=== PATIENT | male | born 1955 ===

== ENCOUNTER 2019-07-27 14:31 | Emergency (ER) | payer BC ==
[2019-07-27] MEDS ORDERED: NA CHLORIDE 0.9% 2,000 ML ONE (15:13)
[2019-07-27] MEDS ORDERED: CEFTRIAXONE/SWI 1gm 1 GM/10 ML SYR ONE (15:13)
[2019-07-27 15:30] LABS: Absolute Lymphocytes (CBC) 0.6 K/uL (0.7-4.9); Basophils % 0.3 % (0-1.3); Hematocrit 46.2 % (39.6-49.0); Lymphocytes % 7.3 % (15.3-44.8); MPV 9.2 fL (7.6-11.3); Protime INR 1.04; RBC Red Blood Cell Count 4.85 M/uL (4.33-5.43)
[2019-07-27] MEDS ORDERED: ACETAMINOPHEN 500 MG TAB ONE (15:47)
[2019-07-27 15:49] LABS: Albumin 4.1 g/dL (3.4-5.0); Bilirubin Direct 0.1 mg/dL (0-0.2); Bilirubin Total 0.5 mg/dL (0.2-1.0); Potassium 3.6 mmol/L (3.5-5.1); Protein, Total 7.3 g/dL (6.4-8.2)
--- NOTE | 2019-07-27 15:52 | RAD REPORT ---
EXAM DESCRIPTION: RAD - Chest Single View - 07/27/2019 3:08 pm CLINICAL HISTORY: Code sepsis chest film COMPARISON: None. TECHNIQUE: AP portable chest image was obtained 1504 hours . FINDINGS: Lungs are clear. Heart and vasculature are normal. No measurable pleural effusion and no p neumothorax. No acute bony abnormality seen. No acute aortic findings suspected. IMPRESSION: No pneumonia or other acute cardiopulmonary finding acute cardiopulmonary process.
--- NOTE | 2019-07-27 17:17 | ER ---
Nurse's Notes [facility] Name: Carlos Ramirez Jr Age: 64 yrs Sex: Male : 1955 Arrival Date: 07/27/2019 Time: 14:34 Bed 2 Private MD: Diagnosis: Acute upper respiratory infection, unspecified;Influenza due to unidentified influenza virus Presentation: 07/27 14:54 Presenting complaint: Patient states: productive cough that began 1 week ago , reports aa5 fever began a few days ago. Reports body aches. Transition of care: patient was not received from another setting of care. Onset of symptoms was June 2019. Risk Assessment: Do you want to hurt yourself or someone else? Patient reports no desire to harm self or others. Care prior to arrival: None. 14:54 Acuity: MEERA 3 aa5 14:54 Method Of Arrival: Ambulatory aa5 14:58 Initial Sepsis Screen: Does the patient meet any 2 criteria? Temp <36.0*C (96.8*F)) or aa5 > 38.3*C (100.9*F). HR > 90 bpm. Yes Does the patient have a suspected source of infection? Yes: Productive cough/pneumonia. 14:58 Initial Sepsis Screen: If YES to both, name of provider notified: Dipesh LANDRY. aa5 Historical: - Allergies: 14:57 No Known Allergies; aa5 - PMHx: 14:57 Hypertension; COPD; aa5 - PSHx: 14:57 Appendectomy; cervical sx; aa5 - Immunization history:: Flu vaccine is not up to date. - Social history:: Smoking status: Patient uses tobacco products, smokes two packs cigarettes per day. - Ebola Screening: : No symptoms or risks identified at this time. Screenin:15 Abuse screen: Denies threats or abuse. Denies injuries from another. Nutritional hb screening: No deficits noted. Tuberculosis screening: No symptoms or risk factors identified. Fall Risk None identified. Assessment: 14:59 Reassessment: a code sepsis has been called. sg 15:10 Reassessment: Dipesh LANDRY at bedside. sv 15:10 General: Appears in no apparent distress. well groomed, well developed, well nourished, sg Behavior is calm, cooperative, appropriate for age. Pain: Denies pain. Neuro: Level of Consciousness is awake, alert, obeys commands, Oriented to person, place, time, Pediatrics Hospitalist are equal bilaterally Moves all extremities. Speech is normal, Facial symmetry appears normal. Cardiovascular: No deficits noted. Capillary refill is brisk in bilateral fingers Patient's skin is warm and dry. Rhythm is regular. Respiratory: Airway is patent Respiratory effort is even, unlabored, Respiratory pattern is regular, symmetrical. GI: Abdomen is round non-distended. : No signs and/or symptoms were reported regarding the genitourinary system. EENT: No signs and/or symptoms were reported regarding the EENT system. Derm: Skin is pink, warm \T\ dry. 15:26 Reassessment: Patient appears in no apparent distress at this time. sg 16:20 Reassessment: Patient appears in no apparent distress at this time. Patient and/or sg family updated on plan of care and expected duration. Pain level reassessed. Patient is alert, oriented x 3, equal unlabored respirations, skin warm/dry/pink. Patient states feeling better. 17:26 Reassessment: Patient appears in no apparent distress at this time. Patient and/or sg family updated on plan of care and expected duration. Pain level reassessed. Patient is alert, oriented x 3, equal unlabored respirations, skin warm/dry/pink. pt to be discharged to home. Vital Signs: 14:57 BP 146 / 89; Pulse 103; Resp 20 S; Temp 102.2(O); Pulse Ox 93% on R/A; Weight 72.57 kg aa5 (R); Height 5 ft. 9 in. (175.26 cm) (R); Pain 4/10; 15:48 BP 155 / 81; Pulse 103; Resp 20; Pulse Ox 97% ; sv 16:30 BP 136 / 76; Pulse 88; Resp 17; Pulse Ox 100% on R/A; sg 17:30 BP 132 / 77; Pulse 90; Resp 18; Temp 99.9; Pulse Ox 98% on R/A; sg 14:57 Body Mass Index 23.63 (72.57 kg, 175.26 cm) aa5 ED Course: 14:34 Patient arrived in ED. cl3 14:54 Arm band placed on. aa5 14:56 Triage completed. aa5 15:00 Dipesh Giles PA is PHCP. [facility] 15:00 Tacos Cason MD is Attending Physician. [facility] 15:05 Patient has correct armband on for positive identification. Placed in gown. Bed in low sv position. Call light in reach. Side rails up X 1. monitor car operator on. Pulse ox on. NIBP on. Door closed. Head of bed elevated. 15:10 Inserted saline lock: 20 gauge in left antecubital area, using aseptic technique. Blood sv collected. Flushed left antecubital with 2 ml normal saline. 15:10 First set of blood cultures drawn by me. sv 15:10 EKG done, by ED staff, reviewed by Dipesh LANDRY. sg 15:18 Second set of blood cultures drawn by lab staff. sv 15:24 Ramón Clark, JULIO C is Primary Nurse. sg 15:25 PT-INR Sent. sv 15:25 Troponin (emerg Dept Use Only) Sent. sv 15:25 Blood Culture Adult (2) Sent. sv 15:25 Lactate Sent. sv 15:25 Procalcitonin Sent. sv 15:25 Basic Metabolic Panel Sent. sv 15:25 CBC with Diff Sent. sv 15:25 Creatinine for Radiology Sent. sv 15:25 Hepatic Function Sent. sv 15:25 Lipase Sent. sv 15:25 Strep Sent. sv 15:25 Flu Sent. sv 17:36 No provider procedures requiring assistance completed. IV discontinued, intact, hb bleeding controlled, No redness/swelling at site. Pressure dressing applied. Administered Medications: 15:18 Drug: NS 0.9% (30 ml/kg) 30 ml/kg Route: IV; Rate: bolus; Site: left antecubital; sv 17:20 Follow up: Response: No adverse reaction; IV Intake: 2177ml sg 15:26 CANCELLED (Duplicate Order): Rocephin - (cefTRIAXone) 1 grams IVPB once over 30 mins; sv (mix in 50 mL NS) 15:26 Drug: Rocephin 1 grams Route: IV; Rate: calculated rate; Site: left antecubital; sv 15:48 Drug: Tylenol 1000 mg Route: PO; sv Intake: 17:20 IV: 2177ml; Total: 2177ml. sg Outcome: 17:17 Discharge ordered by . [facility] 17:36 Discharged to home ambulatory, with family. hb 17:36 Condition: stable 17:36 Discharge instructions given to patient, family, Instructed on discharge instructions, follow up and referral plans. medication usage, Demonstrated understanding of instructions, follow-up care, medications, Prescriptions given X 2. 17:46 Patient left the ED. sg Signatures: Kalani Mauricio, RN Ramón Brandt RN RN sg Mickail, Joel, PA PA jmm Calderon, Audri, RN RN aa5 Teetee Patterson RN RN hb Lewis, Charde cl3
--- NOTE | 2019-07-27 17:18 | EDPHYS ---
Physician Documentation [facility] Name: Carlos Ramirez Jr Age: 64 yrs Sex: Male : 1955 Arrival Date: 07/27/2019 Time: 14:34 Bed 2 Private MD: ED Physician Tacos Cason HPI: 07/27 15:07 This 64 yrs old Male presents to ER via Ambulatory with complaints of Fever. jmm 15:07 Onset: The symptoms/episode began/occurred gradually, 2 week(s) ago. Associated signs jmm and symptoms: Pertinent positives: cough, sore throat. This is a 64 year old male with a history of HTN, COPD that presents to the ED with complaints of cough, congestion beginning 2 weeks ago. Patient developed increased body aches yesterday. Patient has had pneumonia in the past. . Historical: - Allergies: 14:57 No Known Allergies; aa5 - PMHx: 14:57 Hypertension; COPD; aa5 - PSHx: 14:57 Appendectomy; cervical sx; aa5 - Immunization history:: Flu vaccine is not up to date. - Social history:: Smoking status: Patient uses tobacco products, smokes two packs cigarettes per day. - Ebola Screening: : No symptoms or risks identified at this time. ROS: 15:07 Abdomen/GI: Negative for abdominal pain, nausea, vomiting, diarrhea, and constipation, jmm Neuro: Negative for headache, weakness, numbness, tingling, and seizure. 15:07 Constitutional: Positive for fever. 15:07 ENT: Positive for sore throat. 15:07 Respiratory: Positive for cough. 15:07 All other systems are negative. Exam: 15:07 Constitutional: This is a well developed, well nourished patient who is awake, alert, jmm and in no acute distress. Head/Face: atraumatic. Eyes: EOMI, no conjunctival erythema appreciated ENT: Moist Mucus Membranes Neck: Trachea midline, Supple Chest/axilla: Normal chest wall appearance and motion. 15:07 Abdomen/GI: Non distended, soft Back: Normal ROM Skin: General appearance color normal MS/ Extremity: Moves all extremities, no obvious deformities appreciated, no edema noted to the lower extremities Neuro: Awake and alert, normal gait Psych: Behavior is normal, Mood is normal, Patient is cooperative and pleasant 15:07 Cardiovascular: Rate: normal, Rhythm: regular. 15:07 Respiratory: the patient does not display signs of respiratory distress, Respirations: normal, Breath sounds: wheezing: that is mild, is scattered. Vital Signs: 14:57 BP 146 / 89; Pulse 103; Resp 20 S; Temp 102.2(O); Pulse Ox 93% on R/A; Weight 72.57 kg aa5 (R); Height 5 ft. 9 in. (175.26 cm) (R); Pain 4/10; 15:48 BP 155 / 81; Pulse 103; Resp 20; Pulse Ox 97% ; sv 16:30 BP 136 / 76; Pulse 88; Resp 17; Pulse Ox 100% on R/A; sg 17:30 BP 132 / 77; Pulse 90; Resp 18; Temp 99.9; Pulse Ox 98% on R/A; sg 14:57 Body Mass Index 23.63 (72.57 kg, 175.26 cm) aa5 MDM: 15:13 Patient medically screened. [facility] 17:09 Data reviewed: vital signs, nurses notes. Counseling: I had a detailed discussion with timoteo the patient and/or guardian regarding: the historical points, exam findings, and any diagnostic results supporting the discharge/admit diagnosis, lab results, radiology results, the need for outpatient follow up, to return to the emergency department if symptoms worsen or persist or if there are any questions or concerns that arise at home. ED course: states family member has been recently diagnosed with influenza. Patient appears to have flu like symptoms. Will treat with Tamiflu. Patient otherwise given strict return precautions. Patient understood and agrees with the plan of care. . 07/27 15:01 Order name: Flu [facility] 07/27 15:01 Order name: Strep [facility] 07/27 15:01 Order name: Basic Metabolic Panel [facility] 07/27 15:01 Order name: CBC with Diff [facility] 07/27 15:01 Order name: Creatinine for Radiology [facility] 07/27 15:01 Order name: Hepatic Function [facility] 07/27 15:01 Order name: Lipase [facility] 07/27 15:01 Order name: Procalcitonin [facility] 07/27 15:01 Order name: Lactate [facility] 07/27 15:02 Order name: Blood Culture Adult (2) [facility] 07/27 15:03 Order name: Urine Culture [facility] 07/27 15:10 Order name: Troponin (emerg Dept Use Only) [facility] 07/27 15:10 Order name: PT-INR [facility] 07/27 15:33 Order name: CBC with Automated Diff; Complete Time: 15:33 [facility] 07/27 15:27 Order name: Chest Pa And Lat (2 Views) XRAY [facility] 07/27 15:43 Order name: Lactate; Complete Time: 15:45 [facility] 07/27 15:47 Order name: Protime (+INR); Complete Time: 15:48 [facility] 07/27 15:48 Order name: Creatinine (Radiology Only); Complete Time: 15:48 [facility] 07/27 15:49 Order name: Basic Metabolic Panel; Complete Time: 15:50 [facility] 07/27 15:49 Order name: Liver (Hepatic) Function; Complete Time: 15:50 [facility] 07/27 15:49 Order name: Lipase; Complete Time: 15:50 [facility] 07/27 15:55 Order name: Influenza Screen (A ; Complete Time: 16:09 [facility] 07/27 15:55 Order name: Group A Streptococcus Rapid Sc; Complete Time: 16:09 [facility] 07/27 15:56 Order name: RAD; Complete Time: 16:09 [facility] 07/27 16:05 Order name: Troponin (Emerg Dept Use Only); Complete Time: 16:09 [facility] 07/27 16:11 Order name: Procalcitonin; Complete Time: 16:21 [facility] 07/27 16:54 Order name: Urine Dipstick--Ancillary (enter results) 07/27 17:43 Order name: Urine Dipstick-Ancillary [facility] 07/27 15:01 Order name: IV Saline Lock; Complete Time: 15:25 [facility] 07/27 15:01 Order name: Labs collected and sent; Complete Time: 15:25 [facility] 07/27 15:34 Order name: EKG; Complete Time: 15:35 sg Administered Medications: 15:18 Drug: NS 0.9% (30 ml/kg) 30 ml/kg Route: IV; Rate: bolus; Site: left antecubital; sv 17:20 Follow up: Response: No adverse reaction; IV Intake: 2177ml sg 15:26 CANCELLED (Duplicate Order): Rocephin - (cefTRIAXone) 1 grams IVPB once over 30 mins; sv (mix in 50 mL NS) 15:26 Drug: Rocephin 1 grams Route: IV; Rate: calculated rate; Site: left antecubital; sv 15:48 Drug: Tylenol 1000 mg Route: PO; sv Disposition: 07/27/19 17:17 Discharged to Home. Impression: Acute upper respiratory infection, unspecified, Influenza due to unidentified influenza virus. - Condition is Stable. - Discharge Instructions: Influenza, Adult, Upper Respiratory Infection, Adult. - Prescriptions for Zithromax Z- Matt 250 mg Oral Tablet - take 1 tablet by ORAL route as directed for 5 days Day 1 - take two (2) tablets one time. Day 2, 3, 4 , 5 take one (1) tablet once daily.; 6 tablet. Tamiflu 75 mg Oral Capsule - take 1 tablet by ORAL route every 12 hours for 5 days; 10 tablet. - Medication Reconciliation Form, Thank You Letter, Antibiotic Education, Prescription Opioid Use form. - Follow up: Private Physician; When: 2 - 3 days; Reason: Recheck today's complaints, Continuance of care, Re-evaluation by your physician. Addendum: 07/30/2019 10:24 Co-signature as Attending Physician, Tacos Cason MD I agree with the assessment and k dr plan of care. Signatures: Dispatcher [employer] Kalani Chavez RN RN sv Gay, Steven, RN RN sg Rittger, Kevin, MD MD kdr Mickail, Joel, PA PA Paulina Lawson, RN RN aa5 Corrections: (The following items were deleted from the chart) 07/27 15:26 15:02 Rocephin - (cefTRIAXone) 1 grams IVPB once over 30 mins; (mix in 50 mL NS) sv ordered. [facility] 15:26 15:25 Rocephin - (cefTRIAXone) 1 grams IVPB once over 30 mins; (mix in 50 mL NS) sv ordered. sv 17:46 17:17 07/27/2019 17:17 Discharged to Home. Impression: Acute upper respiratory sg infection, unspecified; Influenza due to unidentified influenza virus. Condition is Stable. Forms are Medication Reconciliation Form, Thank You Letter, Antibiotic Education, Prescription Opioid Use. Follow up: Private Physician; When: 2 - 3 days; Reason: Recheck today's complaints, Continuance of care, Re-evaluation by your physician. timoteo
[2019-07-27 17:42] LABS: Urine Blood 1+ (NEG); Urine Glucose NEGATIVE (NEG); Urine Protein NEGATIVE (NEG); Urine pH 5.5 (5.0-7.0)
[2019-07-27 23:08] VITALS: TEMP 102.2
[2019-07-27 23:09] VITALS: BP 155/81; O2SAT 97
--- NOTE | 2019-07-28 08:25 | EKG ---
Test Date: 2019-07-27 Test Time: 15:07:18 Division Engineer: SWG MEASUREMENT RESULTS: Intervals: Rate: 102 HI: 114 QRSD: 96 QT: 324 QTc: 422 [place]: P: HI: 114 QRS: 109 T: 116 INTERPRETIVE STATEMENTS: Sinus tachycardia with premature atrial complexes with aberrant conduction Incomplete right bundle branch block Lateral infarct, age undetermined Abnormal ECG No previous ECG available for comparison Electronically Signed On 07-28-19 08:24:56 [employer] by Sergio Cardoso
== END 2019-07-27 17:46 | disposition home or self-care (01) ==
LOC: ER 14:31
DX: J11.1 Influenza due to unidentified influenza virus with other respiratory manifestations (principal); I10 Essential (primary) hypertension; J44.9 Chronic obstructive pulmonary disease, unspecified; F17.210 Nicotine dependence, cigarettes, uncomplicated
CPT/HCPCS: 93005; 87040 ×2; 87070; 87088; 85025; 87086; 80048; 36415; 85610; 80076; 87081; 83605; 81003; 84484; 83690; 84145; 87804 ×2; 71045; 96375; 96374; 99284; J0696; J7030